=== PATIENT | female | born 1995 ===

== ENCOUNTER 2023-01-26 13:30 | Outpatient (CLI) | payer OTHER, SELFPAY | END 2023-01-26 13:31 | disposition home or self-care (01) | LOC: LKVREF 13:30 | PROVIDERS: PCP Emergency Medicine; Visit Provider Emergency Medicine | DX: Z00.00 Encounter for general adult medical examination without abnormal findings (principal); Z13.6 Encounter for screening for cardiovascular disorders; Z83.49 Family history of other endocrine, nutritional and metabolic diseases | CPT/HCPCS: 80061; 84443 ==